=== PATIENT | male | born 1990 | race African-American/Black ===

== ENCOUNTER 2025-07-02 16:15 | Outpatient (AMB) | payer OTHER, SELFPAY ==
--- NOTE | 2025-07-02 16:32 | A.OFFPC_ITS ---
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[employer] Required: No Accompanied by: Self / Same As Patient Allergies No Known Allergies Allergy (Verified 07/02/25 16:37) Medication List - Last Reconciled 07/02/25 by KEYLA Noyola triamcinolone acetonide 0.1% 1 appl topical BID Tobacco use date assessed: 07/02/25 Dental Screening Dental Screen Date: 07/02/25 Did you have a dental visit in the last 12 months?: Yes Did you have a dental problem in the last 6 months where you did not have access to dental care?: No Was dental information given to patient?: Patient has dentist HPI HPI Comments History of Present Illness Details 35-year-old male with history of externa l hemorrhoids with occasional bleeding presenting to the office today to establish care. Concerns: Eczema- intermittent. Flares on elbows, fingers, and forhead. Tries otc cortisone Health Maintenance: Colonoscopy to start at age 45 ROS: General: No fevers, malaise, unintentional weight loss HEENT: No blurred vision, diplopia. No sore throat, nasal congestion, rhinorrhea, sinus pain, ear pain Cardiovascular: No chest pain, palpitations, or leg edema Respiratory: No shortness of breath, wheezing, cough GI: No abdominal pain, nausea, vomiting, diarrhea, constipation, melena, hematochezia. See HPI : No dysuria, hematuria, increased urinary frequency, decreased urinary output MSK: No myalgia, back pain Neuro: No headaches, weakness, paresthesias Skin: No rashes or lesions EXAM: Constitutional - Awake and Alert, No apparent distress Eyes - PERRL Cardiovascular - S1S2, RRR, No edema Respiratory - Normal lung expansion, Normal respiratory effort, No respiratory distress, CTA bilaterally Extremities - no calf tenderness bilaterally, no swelling Skin - Warm/Dry Neurological - Alert & oriented x3 Psychological - Appropriate affect PFSH Medical History Eczema Hookah pipe smoker Surgical History No pertinent past surgical history Family History Other Adopted Social History Housing: House Patient Tobacco Use Status: Never used Tobacco e-Cigarette/Vaping Use: Never Used Current occupational status: unemployed and student Questionnaire AUDIT C Alcohol Use Questionnaire (AUDIT-C) 1. How often do you have a drink containing alcohol?: 2-4 times a month 2. How many drinks containing alcohol do you have on a typical day when you are drinking?: 1 or 2 3. How often do you have six or more drinks on one occasion?: Never Total Score: 2 Physical exam (Primary Care) Vital Signs: Last Vital Signs Temp 98.5 F 07/02/25 16:34 Pulse 75 07/02/25 16:34 Resp 16 07/02/25 16:34 BP 134/82 07/02/25 16:34 Pulse Ox 99 07/02/25 16:34 Oxygen Delivery Method Room Air 07/02/25 16:34 BMI result Body Mass Index 29.3 Tobacco/Smoking Status: Tobacco use Status Tobacco use date assessed 07/02/25 07/02/25 16:40 Patient Tobacco Use Status Never used Tobacco 07/02/25 16:40 e-Cigarette/Vaping Use Never Used 07/02/25 16:40 Coding Level of Care Code New Pt Level 4 (68049) Diagnoses Encounter to establish care Z76.89 Eczema L30.9 Assessment & Plan Assessment & Plan (1) Encounter to establish care: Code(s): Z76.89 - Persons encountering health services in other specified circumstances Category: Medical Plan: Reviewed past medical, social, family, surgical history. Labs will be ordered below for baseline Counseled on healthy diet lower in calories with increased protein, fruits, vegetables and reducing the amount of refined sugars, simple carbohydrates, highly processed foods. Recommend 150 minutes of moderate intensity exercise weekly. (2) Eczema: Code(s): L30.9 - Dermatitis, unspecified Category: Medical Plan: Prescribed triamcinolone cream. Referred to Dermatology Plan Follow-up for annual physical exam. Labs as ordered Orders: Orders Hemoglobin A1c 07/02/25 Z76.89 - Persons encountering health services in other specified circumstances Lipid Panel 07/02/25 Z76.89 - Persons encountering health services in other specified circumstances Basic Metabolic Panel 07/02/25 Z76. - Persons encountering health services in other specified circumstances Complete Blood Count Auto Diff 07/02/25 Z76. - Persons encountering health services in other specified circumstances Liver Panel 07/02/25 Z76. - Persons encountering health services in other specified circumstances Referrals Dermatology Referral L30.9 - Dermatitis, unspecified Medications: New triamcinolone acetonide 0.1% 1 appl topical BID 30 grams 2RF
[2025-07-02 16:34] VITALS: BP 134/82; PULSE 75; RESP 16; TEMP 36.9; O2SAT 99; BMI 29.3
== END 2025-07-02 16:59 | disposition home or self-care (01) ==
LOC: HO.HMCHD 16:16
PROVIDERS: PCP Physician Assistant; Visit Provider Physician Assistant
DX: Z76.89 Persons encountering health services in other specified circumstances (principal); L30.9 Dermatitis, unspecified

== ENCOUNTER → 2025-07-02 16:15 | Outpatient (BNVA) | payer OTHER, SELFPAY | PROVIDERS: PCP Physician Assistant; Visit Provider Physician Assistant | DX: Z76.89 Persons encountering health services in other specified circumstances (principal); L30.9 Dermatitis, unspecified | CPT/HCPCS: 99202 ==